=== PATIENT | male | born 1960 | race Caucasian/White ===

== ENCOUNTER 2024-11-22 05:53 | Day surgery (SDC) | payer OTHER, SELFPAY ==
--- NOTE | 2024-11-16 07:28 | HPS.HSE ---
Family Physician
-
Family Physician: NO INTERVIEW UNKNOWN
Chief Complaint
-
Supraventricular tachycardia.
History of Present Illness
The patient is a 64 year old male presenting today for supraventricular tachycardia. The patient reports intermittent shortness of breath, palpitations, and lightheadedness associated with this diagnosis. He notes that these symptoms cause
him significant anxiety when they occur. He is on current pharmacological therapy with Toprol XL. He reports that his current symptoms greatly interfere with his activities of daily living and overall impact his quality of life. He is interested in
pursuing with supraventricular tachycardia ablation for further arrhythmia management. He denies any current complaints such as chest pain, shortness of breath at rest, nausea, vomiting, diarrhea, dizziness, cough, sore throat, or fever.
Medical History
Past Medical History
Past Medical History: Reports Other
Additional Past Medical History:
1. Supraventricular tachycardia, pharmacological therapy with Metoprolol Succinate.
2. Vasovagal syncope 02/2024.
3. Asthma, moderate and persistent.
4. GERD.
5. Colon polyps.
6. Diverticulosis.
7. Nephrolithiasis.
8. Probable irritable bowel syndrome.
9. Gilbert's syndrome.
10. Vertigo.
11. Multilevel degenerative disc disease.
12. Sciatica.
13. Left ulnar neuropathy secondary to lipoma.
14. BPH with LUTS.
15. Actinic keratosis.
16. Multiple lipomas.
17. Chronic post-nasal drip.
18. Glaucoma.
19. Bilateral cataracts.
20. Depression.
21. Hearing impairment bilaterally.
22. Obesity, BMI 31.5.
Past Surgical History: Reports Other
Additional Past Surgical History:
1. Left laser lithotripsy and renal stent placement.
2. Nasal fracture repair.
3. Vasectomy.
4. Right eye laser surgery.
5. Multiple epidural steroid injections.
6. Multiple colonoscopies.
Social History
Tobacco: Non-smoker
Alcohol: Other (Social use reported. )
Personal:
Living: Other (He lives in a 2 story home with his . His home has a first floor main setup. )
Family History
Family History: Not pertinent
Allergies / Home Medications
Allergy/Medication List:
Home medications:
1. Albuterol sulfate 2 puffs inhaled every 6 hours as needed.
2. Ascorbic acid 1 gram p.o. daily.
3. Cholecalciferol 50 mcg p.o. daily.
4. Fluticasone 1 spray intranasal daily as needed.
5. Ibuprofen 400-600 mg p.o. every 6 hours as needed.
6. Metoprolol Succinate 25 mg p.o. daily.
7. Multivitamin 2 tablets p.o. daily.
8. Whiting 3 1 capsule p.o. daily.
Allergies: Penicillin. Chary cherries. Mold. Pollen.
Review of Systems
-
A 12 point ROS was completed and negative except as noted: Yes
Physical Exam
Vital Signs
Blood pressure 140/79. Heart rate 73. Respirations 18. Pulse ox 97% on room air.
Height 5 feet, 7 inches. Weight 91.3 kg. BMI 31.5.
Physical Exam
General: Well Developed, Well Nourished and No Apparent Distress
HEENT: NormoCephalic, Moist mucous membranes, Atraumatic, PERRLA and Hearing Impaired
Respiratory: Clear
Cardiac: Regular Rhythm
GI: Soft, Non Tender, Non Distended and Other (Obese. )
Musculoskeletal: No Edema and Normal Gait & Station
Skin: Warm and Dry
Neuro: AO x 3 and Nonfocal/grossly intact
Laboratory Results
-
DIAGNOSTIC STUDIES as of 11/16/2024: White blood cell count 4.8. Hemoglobin 16.1. Platelet count 188,000. Sodium 137. Potassium 4.1. BUN 24. Creatinine 1.0. Glucose 114. Calcium 9.1. AST 33. ALT 36. Albumin 4.3.
EKG 11/16/2024: Normal sinus rhythm.
Echocardiogram 02/08/2018: Normal left ventricular size, wall thickness, and systolic function. No regional wall motion abnormalities are seen. Estimated ejection fraction is 55-60%. No significant valvular disease. No prior study available for
comparison.
Impression/Plan
-
IMPRESSION/PLAN:
1. Supraventricular tachycardia: The patient is in need of a supraventricular tachycardia ablation with Dr. Ruben Wick on 11/22/2024. The benefits and risks of the procedure have been explained to the patient. The patient understands these risks
and wishes to proceed. He is aware to hold his Metoprolol pre-operatively as advised by Dr. Wick.
[2024-11-16 08:10] VITALS: BMI 31.6
[2024-11-22] VITALS (10 sets, daily range): BP systolic 105–139; BP diastolic 74–96; BMI 31.5
[2024-11-22 09:14] LABS: ACT-LR - POC 266 Seconds (116-155)
[2024-11-22 09:30] LABS: ACT-LR - POC 256 Seconds (116-155)
[2024-11-22 09:51] LABS: ACT-LR - POC 322 Seconds (116-155)
--- NOTE | 2024-11-22 10:06 | ITS.CL.ABL ---
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
Ablation
Procedure Report:
ELECTROPHYSIOLOGY ABLATION REPORT
Date of Procedure: October 22, 2024
Referring: Dr. Ruben Wick
INDICATION: History of narrow complex abrupt onset offset tachycardia
HISTORY: Is had this for the last 20 to 30 years
PROCEDURE:
Baseline intracardiac measurements were obtained in sinus rhythm.��HRA, HIS, RVA and CS catheters were placed. 3D mapping with Quartix mapping system. Intracardiac ultrasound was utilized to guide transseptal puncture and to monitor for complications.
There is baseline trace pericardial effusion and no change post procedure. Normal ejection fraction.
Atrial decremental extrastimuli were delivered from the HRA and the CS.��Single and double extrastimuli as well as burst pacing were performed from both sites in both the baseline state and with isoproterenol infusion.��Atrial and AVN antegrade
ERP�s were determined.��Antegrade as well as retrograde AVN [place] CL�s were determined.
MEASUREMENTS:
BASELINE
A-A:�800 ms
P-P:���800 ms
A-H:�86 ms
H-V����48 ms
P-R:���142 ms
QRS:�80 ms
QT:����360 ms
SNRT: Normal at 600 ms
AVN Wenckebach: 290 ms
AVN Fast Pathway ERP: 600�2 40 ms
AVN Slow Pathway ERP: No evidence for slow pathway conduction
HIS-Purkinje System: Normal; no distal block
Retrograde Conduction at baseline was nondecremental and eccentric utilizing a left lateral concealed pathway
RVA ERP: 240 ms/600ms���
At baseline retrograde ERP of the bypass tract was 310 ms and was without decrement.
Evidence for orthodromic AV reentry as the tachycardia diagnosis included: (1)��An eccentric atrial activation sequence during SVT with earliest atrial activation located at the distal 1�2 position along the decapolar CS catheter and was not
bracketed, (2) ventricular pacing from the RVA showed earliest retrograde atrial activation at the 1�2 position along the decapolar CS catheter, matching that seen during SVT, (3) Atrial activation during SVT began after the first 80ms of the QRS
complex, (4) Initiation of SVT was not dependent on a critical AH interval (slow pathway engagement), (5) Ventricular pacing at a CL 20-30 ms faster than the SVT CL during the SVT demonstrated advancement of the atrial electrogram to the pacing CL
and when
pacing was terminated, a V-A-V pattern with continuation of SVT was observed practically excluding AT as the SCT mechanism, (6) VA time during tachycardia versus VA time during pacing was less than 85 ms
SVT was initiated by atrial extrastimuli
SVT could be terminated by ventricular extrastimuli
The SVT cycle length was 310 ms.; SVT was well-tolerated hemodynamically.
Radiofrequency Catheter Ablation:
The intracardiac ultrasound catheter was positioned in the RA to identify the FO for targeting of transseptal puncture.
A transseptal approach was utilized to access the left atrium for mapping and ablation.��This entailed advancing an 10 [place] steerable sheath with dilator into the superior vena cava and withdrawing both (monitoring intracardiac ultrasound,
fluoroscopy and tip pressure) with the tip oriented toward the atrial septum.��The fossa ovalis was engaged (indicated by sudden displacement of the sheath tip as well as tenting of the fossa seen on intracardiac ultrasound).��Left atrial access
required a pass with the [place] needle extended.��Left atrial catheter position was confirmed by pressure monitoring (RA mean pressure 8 mm Hg and LA mean presure 14 mm Hg) as well as fluoroscopy.��The sheath was advanced over the dilator and
positioned in the left atrium.��Heparin was infused to maintain ACT at 300 -350 seconds throughout the case.
The multipolar catheter and the deflectable tip mapping/ablation catheter was placed through the sheath and maneuvered into position along the mitral annulus for mapping of the bypass tract.��Mapping was performed searching for the earliest
retrograde atrial Egm along the mitral annulus during ventricular pacing and there was no evidence for ventricular fusion below pacing at 520 ms.
RF applications were delivered during ventricular pacing using a temperature controlled system.��RF application resulted in nearly immediate (4�6 seconds) elimination of the BT evidenced by a shift in retrograde activation sequence to a midline
activation sequence with earliest atrial activation now at the His position. Ablation was initially performed at 2-3 o'clock on the mitral valve annulus. Approximately 5 minutes in the waiting. There was reconnection and ablation at the more
superior edge brought about by lodgment of bypass tract induction but then again returned and an area lower at approximately 4:00 on the mitral valve annulus durable illumination of the bypass tract was noted throughout a 30-minute waiting period.
�A 4 mm tip RF catheter was used with the maximum power��set to 30 W and the maximum temperature set to 42�degrees C.
After a 30 minute waiting period, stimulation was repeated.��Midline retrograde activation was preserved during RV apical stimulation.
No sustained SVT was induced, a marked contrast to the pre-ablation situation.
COMPLICATIONS: None
SUMMARY: Status post ablation of a left lateral concealed bypass tract which was responsible for narrow complex orthodromic AV reentry at 310 ms. The left lateral concealed bypass tract was relatively broad and required ablation from approximately
1:00 to 4:00 on the mitral valve annulus.
RECOMMENDATIONS:
1. Discontinue metoprolol and aspirin for 30 days
2. Consider same-day discharge
[2024-11-22] MEDS: TYLENOL 650 MG PO (11:23)
== END 2024-11-22 15:05 | disposition home or self-care (01) ==
LOC: CATH 05:53
PROVIDERS: ATTENDING PHYSICIAN Internal Medicine Cardiovascular Disease; FAMILY PHYSICIAN Family Medicine
DX: I47.19 Other supraventricular tachycardia (principal); R00.2 Palpitations; R42 Dizziness and giddiness; R55 Syncope and collapse; J45.909 Unspecified asthma, uncomplicated; K21.9 Gastro-esophageal reflux disease without esophagitis; Z86.0100 Personal history of colon polyps, unspecified; K57.90 Diverticulosis of intestine, part unspecified, without perforation or abscess without bleeding; M54.30 Sciatica, unspecified side; G56.22 Lesion of ulnar nerve, left upper limb; D17.9 Benign lipomatous neoplasm, unspecified; R09.82 Postnasal drip; H40.9 Unspecified glaucoma; F32.A Depression, unspecified; H91.93 Unspecified hearing loss, bilateral; E66.9 Obesity, unspecified; Z68.31 Body mass index [BMI] 31.0-31.9, adult; L57.0 Actinic keratosis; Z79.899 Other long term (current) drug therapy; N40.1 Benign prostatic hyperplasia with lower urinary tract symptoms; F41.9 Anxiety disorder, unspecified; Z88.0 Allergy status to penicillin; Z98.890 Other specified postprocedural states
CPT/HCPCS: 93662; C1732; C1730 ×2; C1894 ×2; C1769; C1766; C2630; C1892; C1759; 76937; 85347; 93005; 93462; 93623; 93653

== ENCOUNTER → 2025-03-04 15:35 | Outpatient (REF) | payer OTHER, SELFPAY ==
[2024-11-16 08:43] LABS: % Basophils 0.4 % (0-2); % Eosinophils 5.3 % (0-6); % Immature Granulocytes 0.2 % (0-0.5); % Lymphocytes 23.2 % (20.5-51.1); % Neutrophils 58.9 % (42.2-75.2); Absolute Eosinophils 0.3 10^3/uL (0-0.7); Absolute Lymphocytes 1.1 10^3/uL (1.2-3.4); Absolute Monocytes 0.6 10^3/uL (0.1-0.6); Absolute Neutrophils 2.8 10^3/uL (1.4-6.5); Hematocrit 47.6 % (39.0-52.0); Hemoglobin 16.1 g/dL (13.0-18.0); Mean Corp Hgb Conc. 33.8 g/dL (33.0-37.0); Mean Corpuscular Hgb 32.2 pg (27.0-31.0); Mean Corpuscular Volume 95.2 fL (80.0-94.0); Mean Platelet Volume 10.7 fL (7.4-10.4); Nucleated Red Blood Cells % 0 % (-); Platelet Count 188 10^3/uL (130-400); Red Cell Dist. Width 12.9 % (11.5-14.5); White Blood Cell Count 4.8 10^3/uL (4.8-10.8)
[2024-11-16 09:11] LABS: ALT (SGPT) 36 U/L (0-50); AST (SGOT) 33 U/L (17-59); Albumin 4.3 g/dl (3.5-5.0); Alkaline Phosphatase 72 U/L (38-126); Blood Urea Nitrogen 24 mg/dl (9-20); Calcium 9.1 mg/dl (8.4-10.2); Carbon Dioxide 26 mmol/L (22-30); Chloride 104 mmol/L (98-107); Glucose 114 mg/dl (70-99); Potassium 4.1 mmol/L (3.5-5.1); Sodium 137 mmol/L (135-145); eGFR > 60.00
== END ==
LOC: REG 15:35
PROVIDERS: ATTENDING PHYSICIAN Internal Medicine Cardiovascular Disease; FAMILY PHYSICIAN Family Medicine
DX: I47.10 Supraventricular tachycardia, unspecified (principal)
CPT/HCPCS: 36415; 80053; 85025; 93005

== ENCOUNTER 2025-08-13 08:03 | Emergency (ER) | payer OTHER, SELFPAY ==
[2025-08-13 08:05] VITALS: BP 144/90
[2025-08-13 08:25] VITALS: BMI 32.0
--- NOTE | 2025-08-13 08:27 | ED.GENMED ---
History of Present Illness
General
Chief Complaint: Chest Pain
Source: patient
Exam Limitations: none
Time Seen by Provider: 08/13/25 08:16
Nursing documentation reviewed up to this point in time: agreed with
History of Present Illness
History of Present Illness:
Note:
CHIEF COMPLAINT(S)
Episodes of palpitations, pressure in the chest, pain in the left arm, and ringing in the ears.
HISTORY OF PRESENT ILLNESS
The patient is a 65-year-old male with a past medical history significant for supraventricular tachycardia (SVT) and a recent cardiac ablation performed in November by Dr. Patel. Post-ablation, the patient experienced continued palpitations and was
transitioned from metoprolol to diltiazem. Over the past week, the patient has noticed increased episodes of rapid heartbeats, accompanied by chest pressure, left arm pain, and a persistent ringing in the ears. The episodes last approximately 10 to
15 seconds each. The patient also reports minor dizziness during these episodes. The symptoms tend to recur in rapid succession. Related stress due to the fathers dementia has been acknowledged, despite the patient not perceiving significant stress.
The patient is currently nervous and has a history of asthma, for which they are taking an unknown medication. The patient mentions avoiding caffeine and reported no smoking history but acknowledges the consumption of coffee earlier today. An EKG
conducted during the visit was normal.
PAST MEDICAL AND SURGICAL HISTORY
- Supraventricular Tachycardia (SVT)
- Cardiac ablation in November
CHRONIC MEDICAL CONDITIONS SIGNIFICANTLY AFFECTING CARE
- Supraventricular Tachycardia (SVT)
- Asthma
SOCIAL DETERMINANTS AFFECTING HEALTH
The patient is managing care for a father with dementia, which may contribute to increased stress levels.
REVIEW OF SYSTEMS
- Cardiovascular: Palpitations, chest pressure, and pain in the left arm
- Neurological: Ringing in the ears, occasional dizziness
- Respiratory: Taking medication for asthma
PHYSICAL EXAM
General: Alert, no acute distress.
Skin: Warm, dry.
Head: Normocephalic, atraumatic.
Neck: Supple, trachea midline.
Eye, Ears, Nose, Mouth, and Throat: Oral mucosa moist.
Cardiovascular: Normal peripheral perfusion, no edema. EKG normal.
Respiratory: Respirations are non-labored.
Gastrointestinal: Abdomen nondistended.
Back: Normal range of motion, normal alignment.
Musculoskeletal: Normal ROM, normal strength.
Neurological: Alert and oriented to person, place, time, and situation. No focal neurological deficit observed.
Psychiatric: Cooperative, appropriate mood and affect.
PROBLEM LIST
Acute:
- Palpitations
- Chest pressure
- Left arm pain
- Ringing in the ears
Chronic:
- Supraventricular Tachycardia
- Asthma
PLAN
- Blood tests to assess troponin levels.
- Continuous cardiac monitoring while in the medical facility.
- If tests are negative, the plan includes follow-up with Dr. Wick.
- Consider potential adjustment of diltiazem dosage.
DIFFERENTIAL DIAGNOSIS
The Differential Diagnosis includes, in no particular order and is not limited to:
- Recurrence of supraventricular tachycardia
- Myocardial ischemia
- Anxiety or panic attacks
- Atrial fibrillation
- Hyperthyroidism
- Arrhythmia secondary to stimulant use
- Electrolyte imbalance
- Cardiomyopathy
- Ventricular tachycardia
- Anxiety disorder
CARE-UPDATE
08/13/25 - 08:28
The patient previously underwent left ureteroscopy with laser lithotripsy and double J stent placement by Dr. Vargas on March 31, 2023, for a left ureteral calculus. Additionally, patient had a cardiac ablation procedure performed by Dr. Wick on
November 22, 2024, for supraventricular tachycardia (SVT). No new findings or changes in treatment were discussed.
My independent EKG interpretation is:
- Time of EK:07 a.m., August 13, 2025
- Rhythm: Normal sinus rhythm
- Heart rate: 86 bpm
- ID interval: Normal
- QRS duration: Normal
- QT interval: Normal
- [place]: Normal
- Abnormalities: None observed (no ST segment changes, T wave inversions, or arrhythmias)
SUMMARY OF ENCOUNTER
The patient was seen in the emergency department for evaluation of chest pain and palpitations. An EKG was performed and was normal. Troponin levels were checked and found to be normal, indicating no acute myocardial infarction. The patient remained
chest pain-free during the emergency department visit, and there were no signs of dysrhythmia or acute coronary syndrome (ACS) observed. Based on these findings, the patient was deemed stable for discharge with follow-up instructions for cardiology.
DISPOSITION
Discharge.
PLAN
The patient is to follow up with cardiology for further evaluation and management.
INDEPENDENT REVIEW OF LABS AND INTERPRETATION OF TESTS
My independent review of troponin levels is normal.
My independent EKG interpretation is normal sinus rhythm, with no abnormalities observed.
PATIENT EDUCATION AND COUNSELING
The patient was informed about the findings of the evaluation, including normal troponin levels and EKG, and reassured about the absence of acute dysrhythmia or ACS. Return precautions were provided to the patient in case of similar symptoms or any
other concerning signs.
FOLLOW-UP INSTRUCTIONS
The patient should schedule a follow-up visit with cardiology to further assess and manage the symptoms.
MEDICAL DECISION MAKING
- Number and Complexity of Problems Addressed: Chronic conditions affecting care: Supraventricular Tachycardia (SVT). Differential Diagnosis list: recurrence of supraventricular tachycardia, myocardial ischemia, anxiety or panic attacks, atrial
fibrillation, hyperthyroidism, arrhythmia secondary to stimulant use, electrolyte imbalance, cardiomyopathy, ventricular tachycardia, anxiety disorder.
- Data:
Category 1:
My independent review of EKG is normal sinus rhythm without any abnormalities.
External records were reviewed, and troponin levels were independently confirmed to be normal.
- Risk: Consideration of Admission/Observation: Escalation of care including admission/observation was considered given the complexity and risk of the patients presenting complaint, exam findings, and their underlying comorbidities. However,
ultimately the patient is deemed safe for outpatient management with close follow up. Reasoning: Work-up was reassuring, revealing no acute life/organ threatening processes, patients symptoms were well controlled upon reevaluation, reexamination was
reassuring, vitals were stable, patient agreeable with discharge, and reliable for follow-up.
DIAGNOSIS
Chest pain, unspecified (ICD-10: R07.9)
Palpitations (ICD-10: R00.2)
Past History
Past History
ED Past Medical History: Arrthythmia (SVT)
Social History
Tobacco: Non-smoker
Personal:
Living: with family
Employment: Employed
Family History
Family History: CAD; Negative Early CAD
Phy Exam
Physical Exam
Physical Exam:
.
Scores
Heart Score for Chest Pain Patients
STEMI patient?: No
History: Slightly or Non-Suspicious
ECG: Normal
Age: >/= 65 years
Risk Factors: 1 or 2 Risk Factors
Troponin: </= Normal Limit
Heart Score for Chest Pain Patients: 3
Heart Score Risk: 2.5% MACE over next 6 weeks
Course
Orders/Labs/Results
Orders:
Orders
08/13/25 08:04
EKG [Electrocardiogram (*1)] Urgent
Reason for Study: Chest Pain
EKG- Treatment ONCE
08/13/25 08:25
Cardiac Monitoring- Treatment ONCE
IV Insert/Care/Rem.- Treatment PRN
Aspirin Chewable [Low Strength Aspirin] 324 mg PO NOW STA
Pulse Ox/cont/shift [RESP] Stat
Quantity: 1
08/13/25 09:19
Complete Blood Count/With Diff Urgent
Comprehensive Metabolic Panel Urgent
Lipase Urgent
Troponin I Urgent
Abnormal Lab Results
08/13/25
09:19
MCV 95.7 H fL
(80.0-94.0)
MCH 32.3 H pg
(27.0-31.0)
Absolute Lymphs (auto) 1.0 L 10^3/uL
(1.2-3.4)
Absolute Monos (auto) 1.0 H 10^3/uL
(0.1-0.6)
Lymphocytes % 15.3 L %
(20.5-51.1)
Monocytes % 15.6 H %
(1.7-9.3)
08/13/25 09:19
08/13/25 09:19
Vital Signs
Initial and Last Documented VS:
Initial Vital Signs
Temp Pulse Resp BP Pulse Ox
98.4 F 95 16 144/90 96
08/13/25 08:05 08/13/25 08:05 08/13/25 08:05 08/13/25 08:05 08/13/25 08:05
Last Documented Vital Signs
Temp Pulse Resp BP Pulse Ox
98.4 F 71 19 117/80 97
08/13/25 08:05 08/13/25 11:00 08/13/25 11:00 08/13/25 11:00 08/13/25 11:15
*Pulse Oximetry
SaO2: 96
Oxygen Mode of Delivery: Room air
Patient hypoxic: no
*Critical Care Note
Total Time (30-74mins, 75-104mins- exclusive of procedures): Not Applicable
ED Attending Note
-
Portions of this chart may have been created with voice recognition software.� Occasional wrong word or��sound alike� substitutions may have occurred due to the inherent limitations of voice recognition software.
Discharge Plan
Departure
Patient Disposition: Home (Routine Discharge)
Date of Disposition: 08/13/25
Time of Disposition: 10:14
Patient with high blood pressure during this ER visit?: No
Condition: Good
Discharge Problem:
Chest pain
Instructions: Chest Pain DCA Follow Up
Prescriptions:
No Action
fluticasone propionate 1 SPRAY spray,suspension
1 spray intranasal PRN PRN (Reason: congestion)
omega [id number] oil [Fish Oil] 1,200 (144-216) mg Capsule
1 cap PO DAILY
ibuprofen [Advil] 200 mg Tablet
400 - 600 mg PO Q6H PRN (Reason: pain)
albuterol sulfate 90 mcg/actuation Hfa Aerosol Inhaler
2 puff INHALATION Q6H PRN (Reason: SOB)
multivit with min-folic acid [Multivitamin Gummies] 200 mcg Tablet,Chewable
2 tab PO DAILY
ascorbic acid (vitamin C) [Vitamin C] 500 mg Tablet,Chewable
500 g PO DAILY
cholecalciferol (vitamin D3) [Vitamin D3] 50 mcg (2,000 unit) Tablet
50 mcg PO DAILY
aspirin 81 mg tablet,chewable
81 mg PO DAILY Qty: 1 0RF
Referrals:
Roldan Platt DO [Family Provider, Family Practice]
Ruben Wick MD [Active, Cardiology] - Call in 1-3 days for appt
Interventions
Interventions:
*Risk Screen - Suicide Last Done: 08/13/25 08:05
*General Assessment Last Done: 08/13/25 08:25
*Neglect/Abuse Screening Last Done: 08/13/25 08:05
*ED- Fall Risk Assessment Last Done: 08/13/25 08:25
*Nursing Disposition Last Done: 08/13/25 11:15
ED- Cardiac Assessment Last Done: 08/13/25 08:25
Discharge Date and Time
Discharge Date/Time: 08/13/25 11:30
Print Language: COLOM[place]
[2025-08-13] MEDS: LOW STRENGTH ASPIRIN 324 MG PO (08:33)
[2025-08-13 08:49] VITALS: BP 125/80
[2025-08-13 09:00] VITALS: BP 117/83
[2025-08-13 09:47] LABS: Hematocrit 46.8 % (39.0-52.0); Hemoglobin 15.8 g/dL (13.0-18.0); Mean Corp Hgb Conc. 33.8 g/dL (33.0-37.0); Mean Corpuscular Volume 95.7 fL (80.0-94.0); Nucleated Red Blood Cells % 0 % (-); Platelet Count 176 10^3/uL (130-400); Red Cell Dist. Width 12.3 % (11.5-14.5)
[2025-08-13 09:56] LABS: ALT (SGPT) 17 U/L (0-50); AST (SGOT) 24 U/L (17-59); Albumin 3.9 g/dl (3.5-5.0); Alkaline Phosphatase 68 U/L (38-126); Blood Urea Nitrogen 19 mg/dl (9-20); Calcium 8.7 mg/dl (8.4-10.2); Carbon Dioxide 27 mmol/L (22-30); Chloride 107 mmol/L (98-107); Estimated Creatinine Clearance 88 ml/min; Glucose 90 mg/dl (70-99); Lipase 77 U/L (23-300); Potassium 4.5 mmol/L (3.5-5.1); Sodium 141 mmol/L (135-145); Total Protein 6.7 g/dl (6.3-8.2); eGFR > 60.00
[2025-08-13 10:00] VITALS: BP 133/83
[2025-08-13 10:04] LABS: Troponin I < 0.012 ng/ml
[2025-08-13 11:00] VITALS: BP 117/80
== END 2025-08-13 11:30 | disposition home or self-care (01) ==
LOC: EMR 08:03
PROVIDERS: EMERGENCY PHYSICIAN Emergency Medicine; FAMILY PHYSICIAN Family Medicine
DX: R07.89 Other chest pain (principal); R00.2 Palpitations; J45.909 Unspecified asthma, uncomplicated; Z82.49 Family history of ischemic heart disease and other diseases of the circulatory system
CPT/HCPCS: 99283; 80053; 83690; 84484; 85025; 93005

== ENCOUNTER → 2025-09-04 08:52 | Outpatient (REF) | payer OTHER, SELFPAY | LOC: RCS 08:52 | PROVIDERS: ATTENDING PHYSICIAN Physician Assistant Medical; FAMILY PHYSICIAN Family Medicine | DX: R07.9 Chest pain, unspecified (principal); R06.09 Other forms of dyspnea; M79.602 Pain in left arm | CPT/HCPCS: 93306 ==

== ENCOUNTER → 2025-09-09 08:19 | Outpatient (REF) | payer OTHER, SELFPAY | LOC: HWRCS 08:19 | PROVIDERS: ATTENDING PHYSICIAN Physician Assistant Medical; FAMILY PHYSICIAN Family Medicine | DX: R07.9 Chest pain, unspecified (principal); R06.09 Other forms of dyspnea; M79.602 Pain in left arm | CPT/HCPCS: 78452; 93017; A9500 ==